=== PATIENT | female | born 2000 | race Caucasian/White ===

== ENCOUNTER 2022-01-29 22:55 | Emergency (ER) | payer BC, SELFPAY | END 2022-01-30 04:10 | disposition home or self-care (01) | LOC: ERS 22:55 | DX: S01.01XA Laceration without foreign body of scalp, initial encounter (principal); F10.129 Alcohol abuse with intoxication, unspecified; X58.XXXA Exposure to other specified factors, initial encounter | CPT/HCPCS: 12001; 70450; 72125 ==